=== PATIENT | female | born 1950 | race Caucasian/White ===

== ENCOUNTER 2017-08-01 07:51 | Inpatient (IN) | payer MEDICARE, OTHER ==
[2017-07-28 11:43] LABS: BASOPHILS % (AUTO) 0.4 % (0-1); EOSINOPHILS # (AUTO) 0.3 X10'3 (0-0.9); EOSINOPHILS % (AUTO) 2.6 % (0-6); LYMPHOCYTES # (AUTO) 2.6 X10'3 (1.1-4.8); LYMPHOCYTES % (AUTO) 26.8 % (21-51); MEAN CORPUSCULAR HEMOGLOBIN 27.5 PG (27.0-31.0); MEAN CORPUSCULAR HGB CONC 33.7 % (33.0-36.5); MEAN CORPUSCULAR VOLUME 81.7 FL (78-98); MONOCYTES # (AUTO) 0.6 X10'3 (0-0.9); MONOCYTES % (AUTO) 5.7 % (2-12); NEUTROPHILS # (AUTO) 6.3 X10'3 (1.8-7.7); NEUTROPHILS % (AUTO) 64.5 % (42-75); PRE OP HEMATOCRIT 41.8 % (35.0-45.0); PRE OP HEMOGLOBIN 14.1 g/dL (12.0-16.0); PRE OP PLATELET COUNT 315 X10'3 (140-440); RED BLOOD COUNT 5.12 X10'6 (4.20-5.60); RED CELL DISTRIBUTION WIDTH 13.4 % (11.5-14.5)
[2017-07-28 11:58] LABS: ALBUMIN 3.9 G/DL (3.4-5.0); ALKALINE PHOSPHATASE 122 IU/L (46-116); BLOOD UREA NITROGEN 13 MG/DL (7-18); BUN/CREATININE RATIO 14.4 (6.6-38.0); CALCIUM 9.3 MG/DL (8.5-10.1); CHLORIDE 104 MMOL/L (99-107); PRE OP ALT 34 U/L (30-65); PRE OP ANION GAP 10 (8-16); PRE OP AST 24 U/L (10-37); PRE OP BILIRUB, TOTAL 0.4 MG/DL (0.0-1.0); PRE OP GLUCOSE 112 MG/DL (70-104); PRE OP POTASSIUM 4.6 MMOL/L (3.4-5.1); PRE OP SODIUM 141 MMOL/L (135-145); TOTAL CARBON DIOXIDE 26.9 MMOL/L (24-32); eGFR 63 ML/MIN
[~2017-08-01] VITALS: Ht 160 cm; Wt 87.5 kg
[2017-08-01] VITALS (20 sets, daily range): BP systolic 90–127; BP diastolic 45–81
[~2017-08-01 07:51] MED LIST: DULO-31 PO; HYDR-565 PO; MELO-102 PO; QUET25TA PO; SYN0.088T PO; famotidine 20mg tablet PO ONE; ringers solution, lacted 1,000 ML IV SCH
[2017-08-01] MEDS ORDERED: vancomycin 1,000mg inj ONE (08:16)
[2017-08-01] MEDS ORDERED: BUPIVAcaine/PF 2.5 mg/ml (0.25%) 30ml vial ONE (08:16)
[2017-08-01] MEDS ORDERED: sevoflurane 250ml liquid IH ONE (08:52)
[2017-08-01] MEDS ORDERED: dexamethasone sod phosphate 4mg/ml inj. ONE (08:52)
[2017-08-01] MEDS ORDERED: LIDOcaine 2% (20mg/ml) 5ml vial ONE (08:59)
[2017-08-01] MEDS ORDERED: fentaNYL/PF 50MCG/1 ML 2ML syringe ONE (08:59)
[2017-08-01] MEDS ORDERED: midazolam 2 mg/2 ml injection ONE ×2 (08:59)
[2017-08-01] MEDS ORDERED: propofol inj 20 ML IV ONE (08:59)
[2017-08-01] MEDS ORDERED: ondansetron/PF 4mg/2ml inj ONE (09:00)
[2017-08-01] MEDS ORDERED: LISI40TA4 PO (09:01)
[2017-08-01] MEDS ORDERED: ePHEDrine 50MG/ML INJ. ONE (09:10)
[2017-08-01] MEDS ORDERED: morphine 2 MG/ML inj. syringe IV PRN ×2 (09:40)
[2017-08-01] MEDS ORDERED: ondansetron/PF 4mg/2ml inj IV PRN ×2 (09:40→11:10)
[2017-08-01] MEDS ORDERED: ringers solution, lacted 1,000 ML IV SCH (09:40)
[2017-08-01] MEDS ORDERED: labetalol 5mg/ml 20ml inj. IV PRN (09:40)
[2017-08-01] MEDS ORDERED: fentaNYL/PF 50MCG/1 ML 2ML syringe IV PRN (09:40)
[2017-08-01] MEDS ORDERED: hydrALAZINE 20mg/ml inj. IV PRN (09:40)
[2017-08-01] MEDS ORDERED: labetalol 5mg/ml 20ml inj. IV ONE (10:14)
[2017-08-01] MEDS ORDERED: HYDROmorphone 1 mg/ml syringe IV PRN ×2 (11:10)
[2017-08-01] MEDS ORDERED: HYDROcodone/acetaminophen 10/325mg tab PO PRN (11:10)
[2017-08-01] MEDS ORDERED: acetaminophen 325mg tablet PO PRN (11:10)
[2017-08-01] MEDS ORDERED: oxyCODONE IR 5mg (immed. release) tablet PO PRN (11:10)
[2017-08-01] MEDS ORDERED: magnesium hydroxide 30ml (MOM) UD suspension PO PRN (11:10)
[2017-08-01] MEDS ORDERED: bisacodyl 10mg suppository rectal RC PRN (11:10)
[2017-08-01] MEDS ORDERED: diphenhydrAMINE 25mg capsule PO PRN ×2 (11:10)
[2017-08-01] MEDS: fentaNYL/PF 50MCG/1 ML 2ML syringe IV PRN ×2 (11:42→11:48)
[2017-08-01] MEDS ORDERED: HYDROmorphone inj. 0.5 MG/0.5 ML DISP.SYRIN IV PRN ×2 (11:49)
[2017-08-01] MEDS: gabapentin 300mg capsule PO SCH ×2 (14:35→20:12)
[2017-08-01] MEDS: acetaminophen 325mg tablet PO SCH ×2 (14:36→20:12)
[2017-08-01] MEDS: ketorolac tromethamine 15mg/ml inj. IV SCH ×2 (14:36→20:12)
[2017-08-01] MEDS: potassium cl 20mEq in 1/2 NS 1,000 ML IV SCH (14:41)
[2017-08-01] MEDS: oxyCODONE IR 5mg (immed. release) tablet PO PRN ×2 (15:58→20:12)
[2017-08-01] MEDS: cefazolin 1gm/NS 100mL 100 ML IV SCH (16:04)
[2017-08-01] MEDS ORDERED: vancomycin/NS 1 GM ADD-VANTAGE 250 ML IV SCH (20:00)
[2017-08-01] MEDS: sennosides 8.6mg tablet PO SCH (20:13)
[2017-08-01] MEDS: vancomycin inj 1,250 MG in normal saline 250ml IV soln 250 ML IV SCH (20:13)
[2017-08-01] MEDS: QUEtiapine 25mg tablet PO SCH (20:16)
[2017-08-02] MEDS: oxyCODONE IR 5mg (immed. release) tablet PO PRN ×5 (00:38→20:57)
[2017-08-02] MEDS: potassium cl 20mEq in 1/2 NS 1,000 ML IV SCH ×4 (00:38→20:47)
[2017-08-02] MEDS: cefazolin 1gm/NS 100mL 100 ML IV SCH (00:38)
[2017-08-02] MEDS: ketorolac tromethamine 15mg/ml inj. IV SCH ×4 (03:22→20:34)
[2017-08-02] MEDS: acetaminophen 325mg tablet PO SCH ×4 (03:22→20:35)
[2017-08-02 07:00] VITALS: BP 101/62
[2017-08-02 07:15] LABS: BASOPHILS % (AUTO) 0.1 % (0-1); EOSINOPHILS # (AUTO) 0.1 X10'3 (0-0.9); EOSINOPHILS % (AUTO) 1.1 % (0-6); HEMATOCRIT 28.8 % (35.0-45.0); HEMOGLOBIN 9.8 g/dl (12.0-16.0); LYMPHOCYTES # (AUTO) 1.6 X10'3 (1.1-4.8); LYMPHOCYTES % (AUTO) 12.3 % (21-51); MEAN CORPUSCULAR HEMOGLOBIN 27.7 PG (27.0-31.0); MEAN CORPUSCULAR HGB CONC 33.9 % (33.0-36.5); MEAN CORPUSCULAR VOLUME 81.6 FL (78-98); MEAN PLATELET VOLUME 8.9 FL (7.4-10.4); MONOCYTES # (AUTO) 0.6 X10'3 (0-0.9); NEUTROPHILS # (AUTO) 10.5 X10'3 (1.8-7.7); NEUTROPHILS % (AUTO) 81.5 % (42-75); PLATELET COUNT 215 X10'3 (140-440); RED BLOOD COUNT 3.53 X10'6 (4.20-5.60); RED CELL DISTRIBUTION WIDTH 14.3 % (11.5-14.5); WHITE BLOOD COUNT 12.8 X10'3 (4.5-11.0)
[2017-08-02] MEDS: duloxetine 30mg CAPSULE.DR PO SCH (07:17)
[2017-08-02] MEDS: lisinopril 20mg tablet PO SCH (07:17)
[2017-08-02] MEDS: gabapentin 300mg capsule PO SCH ×3 (07:17→20:35)
[2017-08-02] MEDS: levoTHYROXINE 88mcg tablet PO SCH (07:18)
[2017-08-02] MEDS: vancomycin inj 1,250 MG in normal saline 250ml IV soln 250 ML IV SCH ×2 (07:18→20:48)
[2017-08-02 07:26] LABS: ANION GAP 8 (8-16); CHLORIDE 108 MMOL/L (99-107); POTASSIUM 4.9 MMOL/L (3.5-5.1); SODIUM 143 MMOL/L (135-145); TOTAL CARBON DIOXIDE 27.2 MMOL/L (24-32)
[2017-08-02] MEDS: aspirin 325mg tablet PO SCH (09:34)
[2017-08-02 11:30] VITALS: BP 100/57
[2017-08-02 18:00] VITALS: BP 110/61
[2017-08-02] MEDS: QUEtiapine 25mg tablet PO SCH (20:35)
[2017-08-02] MEDS: sennosides 8.6mg tablet PO SCH (21:00)
[2017-08-02 22:00] VITALS: BP 117/68
[2017-08-03] MEDS: potassium cl 20mEq in 1/2 NS 1,000 ML IV SCH (03:06)
[2017-08-03] MEDS: acetaminophen 325mg tablet PO SCH ×2 (03:21→08:10)
[2017-08-03 05:00] VITALS: BP 130/71
[2017-08-03] MEDS ORDERED: VANCOMYCIN LEVEL IV NR (07:30)
[2017-08-03] MEDS ORDERED: naproxen 500mg tablet PO SCH (07:30)
[2017-08-03] MEDS: LACTOBACILLUS RHAMNOSUS GG 15 billion unit sprinkle caps PO SCH (07:30)
[2017-08-03] MEDS: levoTHYROXINE 88mcg tablet PO SCH (08:09)
[2017-08-03] MEDS: oxyCODONE IR 5mg (immed. release) tablet PO PRN ×3 (08:11→19:02)
[2017-08-03] MEDS: aspirin 325mg tablet PO SCH (08:12)
[2017-08-03] MEDS: duloxetine 30mg CAPSULE.DR PO SCH (08:12)
[2017-08-03] MEDS: celeCOXIB 100mg capsule PO SCH ×2 (08:12→20:20)
[2017-08-03] MEDS: gabapentin 300mg capsule PO SCH ×3 (08:12→20:20)
[2017-08-03] MEDS: lisinopril 20mg tablet PO SCH (08:12)
[2017-08-03] MEDS: vancomycin inj 1,250 MG in normal saline 250ml IV soln 250 ML IV SCH (08:17)
[2017-08-03 08:38] LABS: BASOPHILS # (AUTO) 0.1 X10'3 (0-0.2); BASOPHILS % (AUTO) 0.5 % (0-1); EOSINOPHILS # (AUTO) 0.6 X10'3 (0-0.9); EOSINOPHILS % (AUTO) 5.1 % (0-6); HEMATOCRIT 30.6 % (35.0-45.0); HEMOGLOBIN 10.3 g/dl (12.0-16.0); LYMPHOCYTES # (AUTO) 3.4 X10'3 (1.1-4.8); LYMPHOCYTES % (AUTO) 30.5 % (21-51); MEAN CORPUSCULAR HEMOGLOBIN 27.7 PG (27.0-31.0); MEAN CORPUSCULAR HGB CONC 33.8 % (33.0-36.5); MEAN CORPUSCULAR VOLUME 82.2 FL (78-98); MEAN PLATELET VOLUME 8.8 FL (7.4-10.4); MONOCYTES # (AUTO) 0.5 X10'3 (0-0.9); MONOCYTES % (AUTO) 4.9 % (2-12); NEUTROPHILS # (AUTO) 6.6 X10'3 (1.8-7.7); PLATELET COUNT 216 X10'3 (140-440); RED BLOOD COUNT 3.72 X10'6 (4.20-5.60); RED CELL DISTRIBUTION WIDTH 14.1 % (11.5-14.5); WHITE BLOOD COUNT 11.3 X10'3 (4.5-11.0)
[2017-08-03 08:46] LABS: ALBUMIN 3.1 G/DL (3.4-5.0); ANION GAP 5 (8-16); BLOOD UREA NITROGEN 16 MG/DL (7-18); CALCIUM 8.3 MG/DL (8.5-10.1); CHLORIDE 110 MMOL/L (99-107); GLUCOSE 85 MG/DL (70-104); POTASSIUM 4.6 MMOL/L (3.5-5.1); SODIUM 145 MMOL/L (135-145); TOTAL CARBON DIOXIDE 30.2 MMOL/L (24-32); VANCOMYCIN,TROUGH 11.7 UG/ML (6.0-14.0); eGFR 72 ML/MIN
[2017-08-03 10:00] VITALS: BP 114/66
[2017-08-03] MEDS: clonazePAM 0.5mg tablet PO SCH ×2 (14:18→20:20)
[2017-08-03] MEDS: DAPTOmycin inj. 500 MG in normal saline 100ml IV soln 100 ML IV SCH (14:46)
[2017-08-03 18:00] VITALS: BP 132/82
[2017-08-03] MEDS: sennosides 8.6mg tablet PO SCH (20:20)
[2017-08-03] MEDS: QUEtiapine 25mg tablet PO SCH (20:20)
[2017-08-03 22:00] VITALS: BP 113/64
[2017-08-04 05:52] LABS: BASOPHILS % (AUTO) 0.3 % (0-1); EOSINOPHILS # (AUTO) 0.7 X10'3 (0-0.9); EOSINOPHILS % (AUTO) 7.3 % (0-6); HEMATOCRIT 30.4 % (35.0-45.0); HEMOGLOBIN 10.3 g/dl (12.0-16.0); LYMPHOCYTES # (AUTO) 2.9 X10'3 (1.1-4.8); LYMPHOCYTES % (AUTO) 28.7 % (21-51); MEAN CORPUSCULAR HEMOGLOBIN 27.6 PG (27.0-31.0); MEAN CORPUSCULAR VOLUME 81.2 FL (78-98); MEAN PLATELET VOLUME 8.6 FL (7.4-10.4); MONOCYTES # (AUTO) 0.7 X10'3 (0-0.9); NEUTROPHILS # (AUTO) 5.7 X10'3 (1.8-7.7); NEUTROPHILS % (AUTO) 56.7 % (42-75); PLATELET COUNT 209 X10'3 (140-440); RED BLOOD COUNT 3.74 X10'6 (4.20-5.60); RED CELL DISTRIBUTION WIDTH 14.6 % (11.5-14.5); WHITE BLOOD COUNT 10.1 X10'3 (4.5-11.0)
[2017-08-04 06:00] VITALS: BP 120/79
[2017-08-04] MEDS: LACTOBACILLUS RHAMNOSUS GG 15 billion unit sprinkle caps PO SCH (07:30)
[2017-08-04] MEDS: celeCOXIB 100mg capsule PO SCH (08:00)
[2017-08-04] MEDS: aspirin 325mg tablet PO SCH (08:36)
[2017-08-04] MEDS: DAPTOmycin inj. 500 MG in normal saline 100ml IV soln 100 ML IV SCH (08:37)
[2017-08-04] MEDS: duloxetine 30mg CAPSULE.DR PO SCH (08:37)
[2017-08-04] MEDS: lisinopril 20mg tablet PO SCH (08:37)
[2017-08-04] MEDS: levoTHYROXINE 88mcg tablet PO SCH (08:37)
[2017-08-04] MEDS: clonazePAM 0.5mg tablet PO SCH (08:37)
[2017-08-04] MEDS: gabapentin 300mg capsule PO SCH (08:37)
[2017-08-04 10:00] VITALS: BP 119/77
[2017-08-04] MEDS: oxyCODONE IR 5mg (immed. release) tablet PO PRN (11:58)
[2017-08-05] MEDS ORDERED: VANCOMYCIN LEVEL IV NR (07:30)
== END 2017-08-04 12:00 | DRG 493 ==
LOC: PAS IN 07:51 → EDSTATUS 12:15 → ORTHO 4S 12:36 → EDSTATUS 13:30 → ORTHO 4S 08-04 09:02
PROVIDERS: ADMIT Orthopaedic Surgery; ATTEND Orthopaedic Surgery
PROC: 0SPF04Z Removal of Internal Fixation Device from Right Ankle Joint, Open Approach (ICD-10-PCS; 2017-08-01)
PROC: 0QBJ0ZZ Excision of Right Fibula, Open Approach (ICD-10-PCS; principal; 2017-08-01 08:52)
PROC: 02HV33Z Insertion of Infusion Device into Superior Vena Cava, Percutaneous Approach (ICD-10-PCS; 2017-08-03)
PROC: B548ZZA Ultrasonography of Superior Vena Cava, Guidance (ICD-10-PCS; 2017-08-03)
DX: T84.7XXA Infection and inflammatory reaction due to other internal orthopedic prosthetic devices, implants and grafts, initial encounter (principal); M86.8X6 Other osteomyelitis, lower leg; T81.31XA Disruption of external operation (surgical) wound, not elsewhere classified, initial encounter; D62 Acute posthemorrhagic anemia; E03.9 Hypothyroidism, unspecified; M54.9 Dorsalgia, unspecified; F32.9 Major depressive disorder, single episode, unspecified; G89.29 Other chronic pain; E78.5 Hyperlipidemia, unspecified; I10 Essential (primary) hypertension; F41.9 Anxiety disorder, unspecified; Z79.82 Long term (current) use of aspirin; Z79.899 Other long term (current) drug therapy; Y84.8 Other medical procedures as the cause of abnormal reaction of the patient, or of later complication, without mention of misadventure at the time of the procedure; Y92.89 Other specified places as the place of occurrence of the external cause; Z87.891 Personal history of nicotine dependence
CPT/HCPCS: 36415; 36569; 76937; 80048; 80051; 80053; 80202; 85025; 85651; 86140; 87015; 87070; 87077; 87186; 97116; 97161; 97535; A6222; A6446; A6449; A7000; J0690; J0878; J1100; J1170; J1885; J2001; J2250; J2405; J2704; J3010; J3370; J3490; J7030; J7120

== ENCOUNTER 2018-03-04 15:29 | Emergency (ER) | payer MEDICARE, MEDICAID ==
[~2018-03-04] VITALS: Ht 160 cm; Wt 85.0 kg
[~2018-03-04 15:29] MED LIST changes: +LISI40TA4 PO; -famotidine 20mg tablet PO ONE; -ringers solution, lacted 1,000 ML IV SCH
[2018-03-04 15:41] VITALS: BP 80/54
[2018-03-04] MEDS ORDERED: BUPIVAcaine/PF 2.5 mg/ml (0.25%) 30ml vial IJ ONE (16:35)
[2018-03-04] MEDS ORDERED: CEPH500C5 PO (17:17)
[2018-03-04] MEDS ORDERED: SULF1TAB49 PO (17:17)
== END 2018-03-04 17:46 | disposition home or self-care (01) ==
LOC: ER 15:30
DX: L02.31 Cutaneous abscess of buttock (principal); G89.29 Other chronic pain; Z98.890 Other specified postprocedural states; Z79.899 Other long term (current) drug therapy
CPT/HCPCS: 10060; 99283; A6266; A6449; J3490

== ENCOUNTER 2018-03-06 16:03 | Emergency (ER) | payer MEDICARE, MEDICAID ==
[~2018-03-06] VITALS: Ht 162.6 cm; Wt 85.7 kg
[~2018-03-06 16:03] MED LIST changes: +CEPH500C5 PO; +SULF1TAB49 PO
[2018-03-06 16:17] VITALS: BP 96/56
== END 2018-03-06 17:20 | disposition home or self-care (01) ==
LOC: ER 16:04
DX: Z48.01 Encounter for change or removal of surgical wound dressing (principal); L02.31 Cutaneous abscess of buttock; G89.29 Other chronic pain; Z98.890 Other specified postprocedural states; Z79.899 Other long term (current) drug therapy
CPT/HCPCS: 99282; A6255; A6266; A6449

== ENCOUNTER 2018-03-09 12:43 | Emergency (ER) | payer MEDICARE, MEDICAID ==
[~2018-03-09] VITALS: Ht 160 cm; Wt 84.1 kg
[2018-03-09 12:51] VITALS: BP 108/72
== END 2018-03-09 13:29 | disposition home or self-care (01) ==
LOC: ER 12:43
DX: Z48.01 Encounter for change or removal of surgical wound dressing (principal); L02.31 Cutaneous abscess of buttock; G89.29 Other chronic pain; Z98.890 Other specified postprocedural states; Z79.899 Other long term (current) drug therapy
CPT/HCPCS: 87070; 87077; 87186; 99284

== ENCOUNTER 2019-01-16 16:08 | Emergency (ER) | payer MEDICAID, MEDICARE ==
[~2019-01-16] VITALS: Ht 160 cm; Wt 88.6 kg
[~2019-01-16 16:08] MED LIST changes: +HYDR-4353 PO; -HYDR-565 PO; -SULF1TAB49 PO
--- NOTE | 2019-01-16 17:34 | NUR ---
surg tech at bedside
[2019-01-16] MEDS ORDERED: DULO20CA50 PO (17:55)
[2019-01-16] MEDS ORDERED: QUET25TA PO (17:55)
[2019-01-16 18:19] VITALS: BP 125/70
== END 2019-01-16 18:21 | disposition home or self-care (01) ==
LOC: ER 16:09
DX: S86.912A Strain of unspecified muscle(s) and tendon(s) at lower leg level, left leg, initial encounter (principal); S96.911A Strain of unspecified muscle and tendon at ankle and foot level, right foot, initial encounter; F41.9 Anxiety disorder, unspecified; G89.29 Other chronic pain; F31.9 Bipolar disorder, unspecified; Z76.0 Encounter for issue of repeat prescription; Z79.899 Other long term (current) drug therapy; Z79.2 Long term (current) use of antibiotics; Z98.890 Other specified postprocedural states; W10.8XXA Fall (on) (from) other stairs and steps, initial encounter; Y93.89 Activity, other specified; Y92.89 Other specified places as the place of occurrence of the external cause; Y99.8 Other external cause status
CPT/HCPCS: 93971; 99284